=== PATIENT | female | born 2000 | race Caucasian/White ===

== ENCOUNTER 2020-08-18 20:02 | Emergency (ER) | payer BC, SELFPAY ==
[~2020-08-18] VITALS: Ht 177.8 cm; Wt 60.5 kg
[2020-08-18 22:12] LABS: BASO # 0.1 10^3/uL (0.0-0.2); BASO % 0.4 % (0.0-1.0); EOS # 0.1 10^3/uL (0.0-0.5); EOS % 0.4 % (0.0-3.0); HEMATOCRIT 49.1 % (36.0-47.0); HEMOGLOBIN 16.6 g/dl (12.0-15.5); LYMPH # 3.3 10^3/uL (1.5-5.0); LYMPH % 19.5 % (24.0-44.0); MEAN CORPUSCULAR HEMOGLOBIN 31.9 pg (27.0-33.0); MEAN CORPUSCULAR HGB CONC 33.8 g/dl (32.0-36.5); MEAN CORPUSCULAR VOLUME 94.2 fl (80.0-96.0); MONO # 0.7 10^3/uL (0.0-0.8); MONO % 4.4 % (2.0-8.0); NEUTROPHILS # 12.5 10^3/uL (1.5-8.5); NEUTROPHILS % 74.9 % (36.0-66.0); RED BLOOD COUNT 5.21 10^6/uL (4.00-5.40); WHITE BLOOD COUNT 16.7 10^3/uL (4.0-10.0)
[2020-08-18] MEDS ORDERED: KETOROLAC 30 MG/ML 1ML VIAL IM ONE (22:15)
[2020-08-18] MEDS ORDERED: ISOVUE-370 76% 100ML VIAL As Ordered ONE (22:21)
[2020-08-18 22:51] LABS: BILIRUBIN,DIRECT 0.1 MG/DL (0.0-0.2); BILIRUBIN,TOTAL 0.6 MG/DL (0.2-1.0); TOTAL PROTEIN 8.3 GM/DL (6.4-8.2)
[2020-08-18] MEDS ORDERED: NS 1,000 ML IV ONE (23:00)
[2020-08-18] MEDS ORDERED: cefTRIAXone SOD 2 GM in D5W MINI-BAG PLUS 50 ML IV ONE (23:00)
[2020-08-18 23:29] VITALS: BP 116/59
[2020-08-18 23:54] LABS: RSV AMPLIFICATION NEGATIVE (NEGATIVE)
[2020-08-19] MEDS ORDERED: NS 1,000 ML IV ONE (00:40)
[2020-08-19] MEDS ORDERED: CIPR500T39 PO (01:20)
== END 2020-08-19 01:55 | disposition home or self-care (01) ==
LOC: M ED 20:02
DX: N10 Acute pyelonephritis (principal); F17.290 Nicotine dependence, other tobacco product, uncomplicated; F12.10 Cannabis abuse, uncomplicated
CPT/HCPCS: 74177; 80047; 80076; 81001; 83605; 83690; 84702; 85025; 87040; 87088; 87186; 87631; 96361; 96365; 96372; 99284; J0696; J1885; Q9967